=== PATIENT | male | born 1945 | race Caucasian/White ===

== ENCOUNTER 2016-08-11 13:48 | Outpatient (CLI) | payer BC, MEDICARE ==
[~2016-08-11 13:48] MED LIST: ALFU10TA10 PO; ATEN25TA PO; GLIM4TAB2 PO; SITA1TAB6 PO
[2016-08-11 15:20] LABS: BASOPHILS % (AUTO) 0.3 % (0.0-2.0); DIFF TOTAL % 100 %; EOSINOPHILS # (AUTO) 0.2 /CMM (0.0-0.7); EOSINOPHILS % (AUTO) 3.1 % (0.0-6.0); HEMATOCRIT 38 % (39-51); HEMOGLOBIN 13.2 g/dL (13.5-17.5); LYMPHOCYTES # (AUTO) 1.3 /CMM (0.8-4.8); LYMPHOCYTES % (AUTO) 22.6 % (20.0-44.0); MEAN CORPUSCULAR HEMOGLOBIN 32 PG (26.0-33.0); MEAN CORPUSCULAR HGB CONC 35 g/dl (31.0-36.0); MEAN CORPUSCULAR VOLUME 93 fL (80-96); MONOCYTES # (AUTO) 0.5 /CMM (0.1-1.30); MONOCYTES % (AUTO) 8.2 % (2.0-12.0); NEUTROPHILS # (AUTO) 3.9 /CMM (1.8-8.9); NEUTROPHILS % (AUTO) 65.8 % (43.0-81.0); PLATELET COUNT (AUTO) 209 /CMM (150-450); RED BLOOD CELL COUNT(AUTO) 4.07 MIL/uL (4.5-6.0); WHITE BLOOD COUNT (AUTO) 5.9 K/uL (4.3-11.0)
[2016-08-11 15:28] LABS: CALCIUM, SERUM 9.3 mg/dL (8.5-10.1); CREATININE 1.2 mg/dL (0.6-1.3); POTASSIUM 4.5 mmol/L (3.5-5.1)
== END 2016-08-11 23:59 | disposition home or self-care (01) ==
LOC: LAB 13:48
PROVIDERS: ATTEND Internal Medicine Cardiovascular Disease
DX: Z01.818 Encounter for other preprocedural examination (principal); I25.10 Atherosclerotic heart disease of native coronary artery without angina pectoris; I10 Essential (primary) hypertension
CPT/HCPCS: 36415; 80048-TC; 85025-TC

== ENCOUNTER 2017-10-19 08:51 | Outpatient (CLI) | payer MEDICARE, BC ==
[2017-10-19] MEDS ORDERED: REGADENOSON 0.4 MG/5 ML DISP.SYRIN IVP ONE (09:30)
[2018-01-12] MEDS ORDERED: DOXA8TAB79 PO (12:25)
[2018-01-12] MEDS ORDERED: DULA1.5P SQ (12:25)
[2018-01-12] MEDS ORDERED: DAPA5TAB PO (12:25)
[2018-01-12] MEDS ORDERED: OMEP20CA10 PO (12:25)
[2018-01-12] MEDS ORDERED: SITA100T PO (12:25)
[2018-01-12] MEDS ORDERED: LOSA100T15 PO (12:25)
[2018-01-12] MEDS ORDERED: ASPI81TA49 PO (12:25)
[2018-01-12] MEDS ORDERED: METF-440 PO (12:25)
[2018-01-12] MEDS ORDERED: PITA2TAB PO (12:25)
[2018-01-12] MEDS ORDERED: CHOL100044 PO (12:25)
== END 2017-10-19 23:59 | disposition home or self-care (01) ==
LOC: NM 08:51
PROVIDERS: ATTEND Internal Medicine Cardiovascular Disease
DX: I25.10 Atherosclerotic heart disease of native coronary artery without angina pectoris (principal); Z95.5 Presence of coronary angioplasty implant and graft
CPT/HCPCS: 78452; A9502; J2785

== ENCOUNTER 2017-10-24 08:19 | Outpatient (CLI) | payer MEDICARE, MEDICAID ==
[2017-10-24] MEDS ORDERED: METOPROLOL TARTRATE INJ 5 MG/5 ML AMPUL ONE (09:12)
[2017-10-24 09:29] LABS: CALCIUM, SERUM 9.1 mg/dL (8.5-10.1); CARBON DIOXIDE 27 mmol/L (21-32); CHLORIDE 100 mmol/L (98-107); CREATININE 1.1 mg/dL (0.6-1.3); GLUCOSE 169 mg/dL (74-106); POTASSIUM 4.6 mmol/L (3.5-5.1); SODIUM SERUM 136 mmol/L (136-145); UREA NITROGEN, BLOOD 19 mg/dL (7-18)
[2017-10-24] MEDS ORDERED: IOHEXOL-350 100 ML VIAL IV ONE (09:56)
[2017-10-24] MEDS ORDERED: NITROGLYCERIN 4.9 GM SPRAY ONE (10:13)
[2018-01-12] MEDS ORDERED: METF-440 PO (12:25)
[2018-01-12] MEDS ORDERED: SITA100T PO (12:25)
[2018-01-12] MEDS ORDERED: LOSA100T15 PO (12:25)
[2018-01-12] MEDS ORDERED: PITA2TAB PO (12:25)
[2018-01-12] MEDS ORDERED: DAPA5TAB PO (12:25)
[2018-01-12] MEDS ORDERED: DULA1.5P SQ (12:25)
[2018-01-12] MEDS ORDERED: OMEP20CA10 PO (12:25)
[2018-01-12] MEDS ORDERED: DOXA8TAB79 PO (12:25)
[2018-01-12] MEDS ORDERED: CHOL100044 PO (12:25)
[2018-01-12] MEDS ORDERED: ASPI81TA49 PO (12:25)
== END 2017-10-24 23:59 | disposition home or self-care (01) ==
LOC: CT 08:19
PROVIDERS: ATTEND Internal Medicine Cardiovascular Disease
DX: I25.10 Atherosclerotic heart disease of native coronary artery without angina pectoris (principal); I10 Essential (primary) hypertension; E78.5 Hyperlipidemia, unspecified; E11.9 Type 2 diabetes mellitus without complications
CPT/HCPCS: 36415; 75574; 80048; J3490; Q9967

== ENCOUNTER 2017-11-10 16:28 | Emergency (ER) | payer MEDICARE, MEDICAID ==
[~2017-11-10] VITALS: Ht 162.6 cm; Wt 87.5 kg
--- NOTE | 2017-11-10 16:30 | NUR ---
AAOX3, CAME TO ER C/O LEFT FACIAL PAIN TO TOUCH SINCE LAST NIGHT. RR IS EVEN AND UNLABORED WITH NAD NOTED. SKIN IS WARM AND NON DIAPHORETIC. AWAITING MD FOR EVAL.
[2017-11-10] MEDS ORDERED: HYDROCODONE/APAP 5/325MG 1 EACH TABLET ONE (16:47)
--- NOTE | 2017-11-10 16:50 | NUR ---
PT TAKEN TO CT
[2017-11-10] MEDS ORDERED: HYDROCODONE/APAP 5/325MG 1 EACH TABLET PO ONE (17:00)
--- NOTE | 2017-11-10 17:36 | NUR ---
Patient discharged to home in stable condition. Written and verbal after care instructions given. Patient verbalizes understanding of instruction.
[2017-11-10 17:38] VITALS: BP 135/80
[2018-01-12] MEDS ORDERED: DOXA8TAB79 PO (12:25)
[2018-01-12] MEDS ORDERED: METF-440 PO (12:25)
[2018-01-12] MEDS ORDERED: OMEP20CA10 PO (12:25)
[2018-01-12] MEDS ORDERED: ASPI81TA49 PO (12:25)
[2018-01-12] MEDS ORDERED: DULA1.5P SQ (12:25)
[2018-01-12] MEDS ORDERED: CHOL100044 PO (12:25)
[2018-01-12] MEDS ORDERED: LOSA100T15 PO (12:25)
[2018-01-12] MEDS ORDERED: PITA2TAB PO (12:25)
[2018-01-12] MEDS ORDERED: SITA100T PO (12:25)
[2018-01-12] MEDS ORDERED: DAPA5TAB PO (12:25)
== END 2017-11-10 17:39 | disposition home or self-care (01) ==
LOC: ER 16:30
DX: R51 Headache (principal); I10 Essential (primary) hypertension; Z98.890 Other specified postprocedural states; Z79.84 Long term (current) use of oral hypoglycemic drugs
CPT/HCPCS: 70450; 70486; 99284; A4606; Z7610

== ENCOUNTER 2018-09-07 10:27 | Emergency (ER) | payer MEDICARE, MEDICAID ==
[~2018-09-07] VITALS: Ht 162.6 cm; Wt 90.7 kg
[~2018-09-07 10:27] MED LIST changes: -ALFU10TA10 PO; +ASPI81TA49 PO; -ATEN25TA PO; +CHOL100044 PO; +DAPA5TAB PO; +DOXA8TAB79 PO; +DULA1.5P SQ; -GLIM4TAB2 PO; +LOSA100T31 PO; +METF-440 PO; +OMEP20CA10 PO; +PITA2TAB PO; +SITA100T PO; -SITA1TAB6 PO
[2018-09-07 10:56] LABS: BASOPHILS % (AUTO) 0.4 % (0.0-2.0); EOSINOPHILS % (AUTO) 1.4 % (0.0-6.0); HEMATOCRIT 41 % (39-51); HEMOGLOBIN 14.4 g/dL (13.5-17.5); LYMPHOCYTES # (AUTO) 0.7 /CMM (0.8-4.8); LYMPHOCYTES % (AUTO) 13.2 % (20.0-44.0); MEAN CORPUSCULAR HGB CONC 35 g/dl (31.0-36.0); MEAN CORPUSCULAR VOLUME 95 fL (80-96); MONOCYTES # (AUTO) 0.8 /CMM (0.1-1.30); MONOCYTES % (AUTO) 13.9 % (2.0-12.0); NEUTROPHILS # (AUTO) 3.9 /CMM (1.8-8.9); NEUTROPHILS % (AUTO) 71.1 % (43.0-81.0); PLATELET COUNT (AUTO) 203 /CMM (150-450); RED BLOOD CELL COUNT(AUTO) 4.38 MIL/uL (4.5-6.0); WHITE BLOOD COUNT (AUTO) 5.5 K/uL (4.3-11.0)
[2018-09-07] MEDS ORDERED: ONDANSETRON HCL/PF 4 MG/2 ML VIAL IVP ONE (11:00)
[2018-09-07] MEDS ORDERED: IV NS 0.9% 1,000 ML BAG IV ONE (11:00)
[2018-09-07 11:04] LABS: CALCIUM, SERUM 8.5 mg/dL (8.5-10.1); CARBON DIOXIDE 24 mmol/L (21-32); CHLORIDE 98 mmol/L (98-107); CREATININE 1.1 mg/dL (0.6-1.3); GLUCOSE 181 mg/dL (74-106); POTASSIUM 4.2 mmol/L (3.5-5.1); SODIUM SERUM 132 mmol/L (136-145); UREA NITROGEN, BLOOD 17 mg/dL (7-18)
--- NOTE | 2018-09-07 11:04 | NUR ---
DIARRHEA ON AND OFF X 1 WEEK, NAUSEA, VOMITING X TODAY. 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 PT IS AOX4, AMB, VSS, RR EVEN AND UNLABORED ON RA. SKIN WARM, DRY, INTACT. NO ACUTE DISTRESS NOTED. AT BEDSIDE AND READY FOR EVAL.
[2018-09-07] MEDS ORDERED: ONDANSETRON HCL/PF 4 MG/2 ML VIAL ONE (11:06)
[2018-09-07 11:09] LABS: ALANINE AMINOTRANSFERASE 38 U/L (12-78); ALBUMIN 3.9 g/dL (3.4-5.0); ALKALINE PHOSPHATASE 65 U/L (46-116); ASPARTATE AMINOTRANSFERASE 31 U/L (15-37); BILIRUBIN,DIRECT 0.2 mg/dL (0.0-0.2); BILIRUBIN,TOTAL 0.8 mg/dL (0.2-1.0); TOTAL PROTEIN, SERUM 7.2 g/dL (6.4-8.2)
--- NOTE | 2018-09-07 11:20 | NUR ---
SEEN BY DR THOMPSON
--- NOTE | 2018-09-07 12:40 | NUR ---
IV removed. Catheter intact and site benign. Pressure and 4x4 applied to site. SOME bleeding noted. Patient discharged to home in stable condition. Written and verbal after care instructions given. Patient verbalizes understanding of instruction.
[2018-09-07 13:11] VITALS: BP 142/74
== END 2018-09-07 12:40 | disposition home or self-care (01) ==
LOC: ER 10:28
DX: R19.7 Diarrhea, unspecified (principal); R11.10 Vomiting, unspecified; I10 Essential (primary) hypertension; E11.9 Type 2 diabetes mellitus without complications; F10.10 Alcohol abuse, uncomplicated; Y90.9 Presence of alcohol in blood, level not specified; Z98.890 Other specified postprocedural states; Z79.82 Long term (current) use of aspirin
CPT/HCPCS: 36415; 80048-TC; 80076-TC; 82962-TC; 85025-TC; J2405; J7030

== ENCOUNTER 2018-09-09 19:56 | Emergency (ER) | payer MEDICARE, MEDICAID ==
[~2018-09-09] VITALS: Ht 162.6 cm; Wt 90.7 kg
--- NOTE | 2018-09-09 20:06 | NUR ---
PT BIBS. C/O "HAVING SOB FOR SEVERAL HOURS" -ACUTE DISTRESS AT THIS TIME. PT PLACED ON 2L N/C. -N/V -DIZZY. AOX4. AMBULATORY W.CANE.
[2018-09-09] MEDS ORDERED: DEXAMETHASONE SOD PHOSPHATE 10 MG/ML VIAL ONE (20:49)
[2018-09-09] MEDS ORDERED: MAG HYDROX/AL HYDROX/SIMETH 30 ML UDC ONE (20:49)
[2018-09-09] MEDS ORDERED: ONDANSETRON HCL/PF 4 MG/2 ML VIAL ONE (20:50)
[2018-09-09] MEDS ORDERED: FAMOTIDINE/PF INJ 20 MG/2 ML VIAL IV ONE ×2 (20:50→21:00)
[2018-09-09] MEDS ORDERED: ASPIRIN 81 MG TAB.CHEW ONE (20:50)
[2018-09-09 20:55] LABS: BASOPHILS % (AUTO) 0.3 % (0.0-2.0); EOSINOPHILS % (AUTO) 2.3 % (0.0-6.0); HEMATOCRIT 40 % (39-51); LYMPHOCYTES # (AUTO) 1.2 /CMM (0.8-4.8); LYMPHOCYTES % (AUTO) 19.5 % (20.0-44.0); MEAN CORPUSCULAR HGB CONC 35 g/dl (31.0-36.0); MEAN CORPUSCULAR VOLUME 93 fL (80-96); MONOCYTES # (AUTO) 0.6 /CMM (0.1-1.30); MONOCYTES % (AUTO) 9.6 % (2.0-12.0); NEUTROPHILS # (AUTO) 4.3 /CMM (1.8-8.9); NEUTROPHILS % (AUTO) 68.3 % (43.0-81.0); PLATELET COUNT (AUTO) 205 /CMM (150-450); RED BLOOD CELL COUNT(AUTO) 4.32 MIL/uL (4.5-6.0); WHITE BLOOD COUNT (AUTO) 6.2 K/uL (4.3-11.0)
[2018-09-09] MEDS ORDERED: ONDANSETRON HCL/PF - ER 4 MG/2 ML VIAL IV ONE (21:00)
[2018-09-09] MEDS ORDERED: IPRATROPIUM NEB FS 0.5 MG/2.5 ML AMPUL.NEB NEB ONE (21:00)
[2018-09-09] MEDS ORDERED: ASPIRIN 81 MG TAB.CHEW PO ONE (21:00)
[2018-09-09] MEDS ORDERED: DEXAMETHASONE SOD PHOSPHATE 10 MG/ML VIAL IV ONE (21:00)
[2018-09-09] MEDS ORDERED: MAG HYDROX/AL HYDROX/SIMETH 30 ML UDC PO ONE (21:00)
[2018-09-09 21:06] LABS: CALCIUM, SERUM 8.6 mg/dL (8.5-10.1); CARBON DIOXIDE 23 mmol/L (21-32); CHLORIDE 100 mmol/L (98-107); CREATININE 0.9 mg/dL (0.6-1.3); GLUCOSE 128 mg/dL (74-106); POTASSIUM 3.9 mmol/L (3.5-5.1); SODIUM SERUM 133 mmol/L (136-145); UREA NITROGEN, BLOOD 14 mg/dL (7-18)
[2018-09-09] MEDS ORDERED: IPRATROPIUM NEB FS 0.5 MG/2.5 ML AMPUL.NEB ONE (21:21)
[2018-09-09] MEDS ORDERED: CEFUROXIME AXETIL 250 MG TABLET PO SCH (22:00)
[2018-09-09 22:55] VITALS: BP 130/88
[2018-09-10 05:31] LABS: B-TYPE NATRIURETIC PEPTIDE 223 PG/ML (0-125); LIPASE 298 U/L (73-393)
== END 2018-09-09 22:55 | disposition home or self-care (01) ==
LOC: ER 19:58
DX: J44.0 Chronic obstructive pulmonary disease with (acute) lower respiratory infection (principal); R19.7 Diarrhea, unspecified; E11.9 Type 2 diabetes mellitus without complications; F17.200 Nicotine dependence, unspecified, uncomplicated; I10 Essential (primary) hypertension; F10.10 Alcohol abuse, uncomplicated; Y90.9 Presence of alcohol in blood, level not specified; Z98.890 Other specified postprocedural states; Z95.5 Presence of coronary angioplasty implant and graft; Z79.82 Long term (current) use of aspirin
CPT/HCPCS: 36415; 71045-TC; 80048-TC; 83690-TC; 83880; 84484-TC; 85025-TC; J1100; J2405; J3490

== ENCOUNTER 2019-02-09 15:08 | Emergency (ER) | payer MEDICARE, MEDICAID ==
[~2019-02-09] VITALS: Ht 162.6 cm; Wt 91.2 kg
[~2019-02-09 15:08] MED LIST changes: -OMEP20CA10 PO; +OMEP20CA11 PO
--- NOTE | 2019-02-09 15:18 | NUR ---
"C/O DIZZINESS x 5 DAYS WITH CHILLS, AND SWEATING" PT AAOX4, -SOB, NAD NOTED, VSS, PENDING MD NEVES
[2019-02-09] MEDS ORDERED: IV NS 0.9% 1,000 ML BAG IV ONE (15:30)
[2019-02-09] MEDS ORDERED: ONDANSETRON HCL/PF 4 MG/2 ML VIAL IVP ONE (15:30)
[2019-02-09 15:41] LABS: BASOPHILS % (AUTO) 0.5 % (0.0-2.0); HEMATOCRIT 36 % (39-51); HEMOGLOBIN 12.9 g/dL (13.5-17.5); LYMPHOCYTES # (AUTO) 1.3 /CMM (0.8-4.8); LYMPHOCYTES % (AUTO) 17.5 % (20.0-44.0); MEAN CORPUSCULAR HGB CONC 36 g/dl (31.0-36.0); MEAN CORPUSCULAR VOLUME 96 fL (80-96); MONOCYTES % (AUTO) 12.9 % (2.0-12.0); NEUTROPHILS # (AUTO) 5.1 /CMM (1.8-8.9); NEUTROPHILS % (AUTO) 68.1 % (43.0-81.0); PLATELET COUNT (AUTO) 199 /CMM (150-450); RED BLOOD CELL COUNT(AUTO) 3.79 MIL/uL (4.5-6.0); WHITE BLOOD COUNT (AUTO) 7.5 K/uL (4.3-11.0)
[2019-02-09 15:48] LABS: CALCIUM, SERUM 9.1 mg/dL (8.5-10.1); CARBON DIOXIDE 23 mmol/L (21-32); CHLORIDE 100 mmol/L (98-107); CREATININE 1.1 mg/dL (0.6-1.3); GLUCOSE 130 mg/dL (74-106); POTASSIUM 4.1 mmol/L (3.5-5.1); SODIUM SERUM 135 mmol/L (136-145); UREA NITROGEN, BLOOD 18 mg/dL (7-18)
[2019-02-09] MEDS ORDERED: ONDANSETRON HCL/PF 4 MG/2 ML VIAL ONE (15:48)
[2019-02-09 15:54] LABS: ALANINE AMINOTRANSFERASE 21 U/L (12-78); ALBUMIN 3.4 g/dL (3.4-5.0); ALKALINE PHOSPHATASE 67 U/L (46-116); ASPARTATE AMINOTRANSFERASE 14 U/L (15-37); BILIRUBIN,DIRECT 0.2 mg/dL (0.0-0.2); BILIRUBIN,TOTAL 0.8 mg/dL (0.2-1.0); LIPASE 205 U/L (73-393); TOTAL PROTEIN, SERUM 6.9 g/dL (6.4-8.2)
[2019-02-09 16:15] LABS: APPEARANCE,URINE Clear (CLEAR); BILIRUBIN,URINE Negative (NEGATIVE); BLOOD, URINE Negative Ery/uL (NEGATIVE); COLOR,URINE Yellow (YELLOW); KETONES,URINE Negative (NEGATIVE); LEUKOCYTE ESTERASE ,URINE Negative (NEGATIVE); NITRITE, URINE Negative (NEGATIVE); PROTEIN,URINE Negative (NEGATIVE); UGLUCOSE 500 MG/DL mg/dL (NEGATIVE); UROBILINOGEN,URINE 0.2 EU/dL (0.2)
[2019-02-09 18:03] VITALS: BP 133/70
--- NOTE | 2019-02-09 18:03 | NUR ---
Patient discharged to home in stable condition. Written and verbal after care instructions given. Patient verbalizes understanding of instruction. IV removed. Catheter intact and site benign. Pressure and 4x4 applied to site. No bleeding noted.
== END 2019-02-09 18:04 | disposition home or self-care (01) ==
LOC: ER 15:11
DX: R42 Dizziness and giddiness (principal); E11.9 Type 2 diabetes mellitus without complications; I10 Essential (primary) hypertension; N40.0 Benign prostatic hyperplasia without lower urinary tract symptoms; Z98.890 Other specified postprocedural states; Z79.82 Long term (current) use of aspirin; Z79.899 Other long term (current) drug therapy; Z79.84 Long term (current) use of oral hypoglycemic drugs
CPT/HCPCS: 36415; 70450; 80048; 80076; 81001; 83690; 84484; 85025; 87086; 93005; 96361; 96374; 99284; J2405; J7030; 81000-TC

== ENCOUNTER 2019-08-02 11:27 | Day surgery (SDC) | payer MEDICARE, MEDICAID ==
[~2019-08-02] VITALS: Ht 162.6 cm; Wt 90.7 kg
[~2019-08-02 11:27] MED LIST changes: -OMEP20CA11 PO; +OMEP20CA15 PO
[2019-08-02] MEDS ORDERED: NITROGLYCERIN 0.4 MG/TAB BOTTLE ONE (12:21)
[2019-08-02] MEDS ORDERED: METOPROLOL TARTRATE INJ 5 MG/5 ML AMPUL ONE ×4 (12:21→13:13)
[2019-08-02] MEDS ORDERED: NITROGLYCERIN 0.4 MG/TAB BOTTLE SL ONE (12:30)
[2019-08-02] MEDS ORDERED: IV NS 0.9% 500 ML IV PRN (12:30)
[2019-08-02] MEDS ORDERED: IOHEXOL-350 100 ML VIAL IV ONE (12:35)
[2019-08-02] MEDS ORDERED: IV NS 0.9% 250 ML IV ONE (12:35)
[2019-08-02] MEDS: METOPROLOL TARTRATE INJ 5 MG/5 ML AMPUL IVP PRN ×10 (12:40→13:25)
--- NOTE | 2019-08-02 13:32 | NUR ---
RN NOTES: CTA PROCEDURE: Patient awake and verbally responsive, denies pain or discomfort at this time. CTA procedure explained by and patient verbalizes understanding and signed consent, filed in chart. Patient able to tolerate the procedure, without any discomfort. Report given to Mallory ABAD.
[2019-08-02 14:00] VITALS: BP 131/67
--- NOTE | 2019-08-02 14:00 | NUR ---
MS RN NOTES RECEIVED PATIENT S/P CTA. DENIES ANY C/O PAIN NOR DISCOMFORT AT THIS TIME. NO S/S OF RESPIRATORY DISTRESS. ORIENTED PATIENT TO ROOM, UNIT AND CALL LIGHT. PATIENT AMBULATING IN ROOM WITH STEADY GAIT. VISUALLY CHECKED. IN NO APPARENT DISTRESS.
[2019-08-02 14:15] VITALS: BP 137/73
[2019-08-02 14:40] VITALS: BP 131/81
--- NOTE | 2019-08-02 14:40 | NUR ---
MS RN CLOSING NOTES S/P CTA. ALERT AND ORIENTED X4. AMBULATORY WITH STEADY GAIT. NO SOB. DENIES ANY C/O PAIN NOR DISCOMFORT AT THIS TIME. PATIENT VERBALIZES UNDERSTANDING OF INSTRUCTIONS AND TEACHINGS GIVEN BY DR. RICHTER. PATIENT LEFT IN STABLE CONDITION VIA PRIVATE CAR. IN NO APPARENT DISTRESS.
== END 2019-08-02 14:40 | disposition home or self-care (01) ==
LOC: CT 11:27
PROVIDERS: ATTEND Internal Medicine Interventional Cardiology
DX: I25.10 Atherosclerotic heart disease of native coronary artery without angina pectoris (principal); I31.3 Pericardial effusion (noninflammatory); R07.9 Chest pain, unspecified; M47.814 Spondylosis without myelopathy or radiculopathy, thoracic region
CPT/HCPCS: 75574; 96374; 96376; J3490 ×4; J7050; Q9967

== ENCOUNTER 2019-08-08 07:28 | Outpatient (CLI) | payer MEDICARE, MEDICAID ==
[2019-08-08] MEDS ORDERED: REGADENOSON 0.4 MG/5 ML DISP.SYRIN IVP ONE (08:00)
== END 2019-08-08 23:59 | disposition home or self-care (01) ==
LOC: NM 07:28
PROVIDERS: ATTEND Internal Medicine Interventional Cardiology
DX: R07.9 Chest pain, unspecified (principal)
CPT/HCPCS: 78452; A9502; J2785

== ENCOUNTER 2020-06-04 08:38 | Day surgery (SDC) | payer MEDICARE, OTHER ==
[~2020-06-04] VITALS: Ht 162.6 cm; Wt 87.5 kg
[2020-06-04 10:03] LABS: CALCIUM, SERUM 9.3 mg/dL (8.5-10.1); CREATININE 0.9 mg/dL (0.6-1.3); POTASSIUM 4.8 mmol/L (3.5-5.1)
[2020-06-04] MEDS ORDERED: IOHEXOL-350 100 ML VIAL IV ONE (10:25)
[2020-06-04] MEDS ORDERED: IV NS 0.9% 250 ML IV ONE (10:25)
[2020-06-04] MEDS: METOPROLOL TARTRATE INJ 5 MG/5 ML AMPUL IVP PRN ×2 (10:55→11:00)
[2020-06-04] MEDS ORDERED: METOPROLOL TARTRATE INJ 5 MG/5 ML AMPUL ONE ×2 (10:57→11:35)
[2020-06-04] MEDS ORDERED: NITROGLYCERIN 0.4 MG/TAB BOTTLE SL ONE (11:00)
[2020-06-04 11:04] VITALS: BP 130/60
--- NOTE | 2020-06-04 11:39 | NUR ---
IV removed. Catheter intact and site benign. Pressure and 4x4 applied to site. No bleeding noted.Patient discharged to home in stable condition. Written and verbal after care instructions given. Patient verbalizes understanding of instruction.
== END 2020-06-04 11:42 | disposition home or self-care (01) ==
LOC: CT 08:38
PROVIDERS: ATTEND Internal Medicine Interventional Cardiology
DX: I10 Essential (primary) hypertension (principal); I25.10 Atherosclerotic heart disease of native coronary artery without angina pectoris; I31.3 Pericardial effusion (noninflammatory)
CPT/HCPCS: 36415; 75574; 80048; J3490 ×2; J7050; Q9967

== ENCOUNTER → 2020-06-15 | Outpatient (CLI) | payer MEDICARE, OTHER ==
[~2020-06-15] MED LIST changes: +DAPA1TAB5 PO; +SAW1CAPS6 PO; +SAXA1TBM3 PO
== END | disposition home or self-care (01) ==
LOC: LAB 11:28
PROVIDERS: ATTEND Internal Medicine
DX: Z01.812 Encounter for preprocedural laboratory examination (principal); Z20.828 Contact with and (suspected) exposure to other viral communicable diseases
CPT/HCPCS: 87426; C9803

== ENCOUNTER 2020-06-17 07:56 | Day surgery (SDC) | payer MEDICARE, OTHER ==
[~2020-06-17] VITALS: Ht 162.6 cm; Wt 87.5 kg
[2020-06-17] VITALS (8 sets, daily range): BP systolic 117–149; BP diastolic 62–76
[~2020-06-17 07:56] MED LIST changes: -DAPA1TAB5 PO; -SAW1CAPS6 PO; -SAXA1TBM3 PO
[2020-06-17] MEDS ORDERED: IODIXANOL 150 ML IV ONE ×2 (08:53→08:55)
[2020-06-17] MEDS ORDERED: LIDOCAINE HCL/MPF 1% 30 ML VIAL IJ ONE (08:54)
[2020-06-17] MEDS ORDERED: NITROGLYCERIN ICAR 1,000 MCG/10 ML VIAL ICAR ONE ×2 (08:54→11:49)
[2020-06-17 09:14] LABS: BASOPHILS % (AUTO) 0.9 % (0.0-2.0); EOSINOPHILS % (AUTO) 2.9 % (0.0-6.0); HEMATOCRIT 42 % (39-51); HEMOGLOBIN 14.4 g/dL (13.5-17.5); LYMPHOCYTES # (AUTO) 1.4 /CMM (0.8-4.8); MEAN CORPUSCULAR HGB CONC 34 g/dl (31.0-36.0); MEAN CORPUSCULAR VOLUME 95 fL (80-96); MONOCYTES # (AUTO) 0.5 /CMM (0.1-1.30); MONOCYTES % (AUTO) 10.4 % (2.0-12.0); NEUTROPHILS # (AUTO) 2.8 /CMM (1.8-8.9); NEUTROPHILS % (AUTO) 56.8 % (43.0-81.0); PLATELET COUNT (AUTO) 155 /CMM (150-450); RED BLOOD CELL COUNT(AUTO) 4.43 MIL/uL (4.5-6.0)
[2020-06-17] MEDS ORDERED: SAW1CAPS6 PO (09:47)
[2020-06-17] MEDS ORDERED: SAXA1TBM3 PO (09:47)
[2020-06-17] MEDS ORDERED: DAPA1TAB5 PO (09:47)
[2020-06-17 10:08] LABS: CALCIUM, SERUM 9.2 mg/dL (8.5-10.1); POTASSIUM 4.5 mmol/L (3.5-5.1)
[2020-06-17] MEDS ORDERED: FENTANYL PF 100MCG/2ML AMPUL ONE ×2 (10:16→12:05)
[2020-06-17] MEDS ORDERED: MIDAZOLAM HCL 2 MG/2ML VIAL ONE ×2 (10:16→12:05)
[2020-06-17 10:18] LABS: ALBUMIN 3.9 g/dL (3.4-5.0); TOTAL PROTEIN, SERUM 7.6 g/dL (6.4-8.2)
[2020-06-17] MEDS ORDERED: diphenhydrAMINE HCL 50 MG/ML VIAL ONE (10:19)
[2020-06-17] MEDS ORDERED: HEPARIN SODIUM, PORCINE 1,000 UNIT/ML VIAL ONE ×2 (10:33→11:51)
[2020-06-17] MEDS ORDERED: HEPARIN SODIUM, PORCINE 5000 UNITS/1 ML VIAL ONE ×2 (10:33→11:51)
[2020-06-17] MEDS ORDERED: IV D5W 0 ML IV ONE (10:41)
[2020-06-17] MEDS ORDERED: IV NS 0.9% 500 ML IV ONE (10:44)
[2020-06-17] MEDS ORDERED: [UNRECOGNIZED DRUG - OTHER] MC ONE (10:44)
[2020-06-17] MEDS ORDERED: IODIXANOL 320MG/ML 100 ML IV ONE (11:47)
[2020-06-17] MEDS ORDERED: IODIXANOL 320MG/ML 50 ML IV ONE (11:48)
[2020-06-17 12:03] LABS: BILIRUBIN,TOTAL 0.6 mg/dL (0.2-1.0)
[2020-06-17] MEDS ORDERED: TICAGRELOR 90 MG TABLET PO ONE (12:43)
[2020-06-17] MEDS ORDERED: ASPIRIN 81 MG TAB.CHEW ONE (12:44)
--- NOTE | 2020-06-17 14:04 | NUR ---
Rec'd from [facility] s/p PCI RCA. Pt awake and alert, wearing hearing aids. Verbalized needs. Sweta updated aquilino in lobby. Orders noted, IVF infusing NS 0.9% 100ml/hr as ordered. BP stabke 140s, no chest pain since arrival. Addendum: 06/17/20 at 1439 by RADHA ALICEA RN R pedal pulse strong and present, R groin drsg CDI no hematoma, no pain. Skin wd, pink color. R radial TR band inplace. weaning off pressure. NO chest pain. Moving all extremities. GCS 3. AOx4, Moving all extremities. Addendum: 06/17/20 at 1454 by RADHA ALICEA RN Pt rec'd Heparin and Brilinta post cardiac cath. No need for SCD at this time. Mild and min bleeding from R radial TR band. Diabetic diet ordered. VSS 127/71, RA sats 98%. IVF infusing and line patent. Addendum: 06/17/20 at 1547 by RADHA ALICEA RN Will endorse to Mehreen for cont plan of care.
--- NOTE | 2020-06-17 17:28 | NUR ---
RN NOTES PT AWAKE, ALERT AND ORIENTED, ABLE TO AMBULATE INSIDE THE ROOM AND ALONG THE HALLWAY, NO COMPLAINT OF PAIN, NOT IN DISTRESS, BREATHING PATTER NORMAL, WITH TR BAND, NO BLEEDING NOTED, ABLE TO DRINK, SEEN BY DR. ARAUJO, DISCHARGE INSTRUCTIONS PROVIDED, PT VERBALIZED UNDERSTANDING, PRESCRIPTION GIVEN TO PT, TR BAND REMOVED PER PROTOCOL, NO BLEEDING NOTED TO SITE, PRESSURE DRESSING APPLIED, ASSISTED PT TO HOSPITAL LOBBY, IN STABLE CONDITION, MET BY HIS , AWAITING TRANSPORT COLLECTIONS CLERK BY HIS SON.
== END 2020-06-17 17:30 | disposition home or self-care (01) ==
LOC: CATHLAB 07:56
PROVIDERS: ATTEND Internal Medicine
DX: I25.10 Atherosclerotic heart disease of native coronary artery without angina pectoris (principal)
CPT/HCPCS: 36415; 80053; 82962; 85025; 85610; 85730; 92920; 92978; 93005; 93458; 99152; 99153; C1753; C1769 ×2; C1894; J1200; J1644 ×8; J2250 ×2; J3010 ×2; J3490; J7040; Q9967 ×2; 92982; G0500; J7060

== ENCOUNTER 2020-12-21 10:35 | Emergency (ER) | payer MEDICARE, OTHER ==
[~2020-12-21] VITALS: Ht 157.5 cm; Wt 87.5 kg
[~2020-12-21 10:35] MED LIST changes: +DAPA1TAB5 PO; +SAW1CAPS6 PO; +SAXA1TBM3 PO
--- NOTE | 2020-12-21 10:35 | NUR ---
PT BIB C/O L SIDED CHEST PAIN SINCE LAST NIGHT. PT IS AAOX4, NOT IN RESPIRATORY DISTRESS, HOOKED TO ADJUNCT TEACHER, KEPT RESTED AND COMFORTABLE. WILL CONTINUE TO MONITOR.
--- NOTE | 2020-12-21 10:45 | NUR ---
PT IV LINE ESTABLISHED BLOOD DRAWN AND SENT TO LAB.
[2020-12-21 11:00] LABS: BASOPHILS % (AUTO) 0.5 % (0.0-2.0); EOSINOPHILS % (AUTO) 2.4 % (0.0-6.0); HEMATOCRIT 40 % (39-51); HEMOGLOBIN 13.8 g/dL (13.5-17.5); LYMPHOCYTES # (AUTO) 1.3 /CMM (0.8-4.8); LYMPHOCYTES % (AUTO) 24.2 % (20.0-44.0); MEAN CORPUSCULAR HGB CONC 35 g/dl (31.0-36.0); MEAN CORPUSCULAR VOLUME 96 fL (80-96); MONOCYTES # (AUTO) 0.6 /CMM (0.1-1.30); MONOCYTES % (AUTO) 10.8 % (2.0-12.0); NEUTROPHILS # (AUTO) 3.4 /CMM (1.8-8.9); NEUTROPHILS % (AUTO) 62.1 % (43.0-81.0); PLATELET COUNT (AUTO) 176 /CMM (150-450); RED BLOOD CELL COUNT(AUTO) 4.11 MIL/uL (4.5-6.0); WHITE BLOOD COUNT (AUTO) 5.4 K/uL (4.3-11.0)
[2020-12-21 11:11] LABS: CARBON DIOXIDE 25 mmol/L (21-32); CHLORIDE 96 mmol/L (98-107); CREATININE 1.1 mg/dL (0.6-1.3); GLUCOSE 315 mg/dL (74-106); POTASSIUM 4.3 mmol/L (3.5-5.1); SODIUM SERUM 131 mmol/L (136-145); UREA NITROGEN, BLOOD 17 mg/dL (7-18)
--- NOTE | 2020-12-21 11:30 | NUR ---
IV removed. Catheter intact and site benign. Pressure and 4x4 applied to site. No bleeding noted. Patient discharged to home in stable condition. Written and verbal after care instructions given. Patient verbalizes understanding of instruction.
[2020-12-21 11:31] VITALS: BP 134/73
== END 2020-12-21 11:32 | disposition home or self-care (01) ==
LOC: ER 10:44
DX: R07.89 Other chest pain (principal); I10 Essential (primary) hypertension; E11.9 Type 2 diabetes mellitus without complications; Z98.890 Other specified postprocedural states; Z79.899 Other long term (current) drug therapy; Z79.82 Long term (current) use of aspirin
CPT/HCPCS: 36415; 71045-TC; 80048-TC; 84484-TC; 85025-TC

== ENCOUNTER 2021-06-16 11:16 | Outpatient (CLI) | payer MEDICARE, OTHER ==
[2021-06-16 12:32] LABS: CALCIUM, SERUM 8.6 mg/dL (8.5-10.1); CREATININE 1.1 mg/dL (0.6-1.3)
[2021-06-16 12:53] LABS: BASOPHILS % (AUTO) 0.3 % (0.0-2.0); EOSINOPHILS % (AUTO) 1.6 % (0.0-6.0); HEMATOCRIT 41 % (39-51); HEMOGLOBIN 14.3 g/dL (13.5-17.5); LYMPHOCYTES # (AUTO) 1.2 K/uL (0.8-4.8); LYMPHOCYTES % (AUTO) 18.4 % (20.0-44.0); MEAN CORPUSCULAR HGB CONC 35 g/dl (31.0-36.0); MEAN CORPUSCULAR VOLUME 94 fL (80-96); MONOCYTES # (AUTO) 0.6 K/uL (0.1-1.30); MONOCYTES % (AUTO) 9.3 % (2.0-12.0); NEUTROPHILS # (AUTO) 4.8 K/uL (1.8-8.9); NEUTROPHILS % (AUTO) 70.4 % (43.0-81.0); PLATELET COUNT (AUTO) 170 K/uL (150-450); WHITE BLOOD COUNT (AUTO) 6.8 K/uL (4.3-11.0)
== END 2021-06-16 23:59 | disposition home or self-care (01) ==
LOC: LAB 11:16
PROVIDERS: ATTEND Internal Medicine
DX: E11.9 Type 2 diabetes mellitus without complications (principal); I25.10 Atherosclerotic heart disease of native coronary artery without angina pectoris; D68.8 Other specified coagulation defects; R07.9 Chest pain, unspecified
CPT/HCPCS: 36415; 80048-TC; 85025-TC; 85730-TC